=== PATIENT | male | born 1990 | race Caucasian/White ===

== ENCOUNTER 2018-04-27 19:13 | Emergency (ER) | payer BC ==
[~2018-04-27] VITALS: Ht 185.4 cm; Wt 109.1 kg
[~2018-04-27 19:13] MED LIST: BENADRYL25 M2 PO; ZYRTEC 10MG10 MG PO
[2018-04-27 19:21] VITALS: BP 117/53; PULSE 116; TEMP 102.3
== END 2018-04-27 20:52 | disposition home or self-care (01) ==
LOC: COL.ER 19:13
DX: J11.1 Influenza due to unidentified influenza virus with other respiratory manifestations (principal)